=== PATIENT | male | born 1955 | race Caucasian/White ===

== ENCOUNTER 2023-04-23 10:35 | Observation (INO) ==
--- NOTE | 2023-04-05 15:01 | PAT Medication Instructions ---
Medication Instructions Date of Service April 05, 2023 Home Medications atorvastatin 10 mg tablet (Lipitor) 10 mg PO QAM duloxetine 30 mg capsule,delayed release (Cymbalta) 30 mg PO QAM insulin lispro-aabc 100 unit/mL subcutaneous solution (Lyumjev U-100 Insulin) 1 sliding scale dose subcut USEASDIRECTD lisinopril 20 mg tablet 20 mg PO QAM Medication Instructions: DO NOT take the morning of surgery lisinopril 20 mg tablet 20 mg PO QAM insulin lispro-aabc 100 unit/mL subcutaneous solution (Lyumjev U-100 Insulin) 1 sliding scale dose subcut USEASDIRECTD Take morning of surgery With a small sip of water, OTHERWISE NOTHING TO EAT OR DRINK AFTER MIDNIGHT: atorvastatin 10 mg tablet (Lipitor) 10 mg PO QAM duloxetine 30 mg capsule,delayed release (Cymbalta) 30 mg PO QAM Other Notes If you have any questions please call us at [phone] or [phone] or [phone] or [phone]
--- NOTE | 2023-04-09 13:47 | Anesthesiology Consultation ---
Date of Service April 09, 2023 Assessment & Plan (1) Encounter for pre-operative examination: - awaiting echocardiogram. - check BSG am DOS. - insulin pump instructions: It was corrected on provided medication instructions and patient instructed that he needs to contact managing provider of his insulin pump for instructions regarding surgery. He verbalized full understanding and agreement, denied questions or concerns. - 3/6 systolic murmur: echocardiogram needed prior to surgery, patient aware and agreeable. Optimization form completed to be faxed to Dr. Brady. Surgeon's office made aware. - Outpatient joint assessment: Patient is currently scheduled for inpatient pathway. If re-evaluated and patient/surgeon requests outpatient pathway, patient is/is not acceptable candidate for outpatient joint program from anesthesia standpoint pending surgeon's office assessment of pt motivation/support/completion of same day joint program preop requirements. Chart Review Chart Review: Pending: Refer to Additional Notes / Consult section and Patient seen in Pre Admission Testing Teaching & Discussion Pre-Anesthesia Teaching/Discussion Notes: Instructed NPO after midnight before surgery, except medications with 15 cc of water. Medication instructions provided according to the PAT guidelines. History Surgery Operation Date: 04/23/23 12:30 Proposed Procedures p Right Total Knee Arthroplasty - Rainer Colvin MD Height/Weight Height: 5 ft 3 in Weight: 63.6 kg Allergies Allergy/AdvReac Type Severity Reaction Status Date / Time Penicillins Allergy Mild Rash Verified 04/05/23 12:45 erythromycin base AdvReac Mild Gastrointestinal Verified 04/05/23 12:45 Upset Medications Home Medications Medication Instructions Recorded Confirmed Last Taken atorvastatin 10 mg tablet (Lipitor) 10 mg PO QAM 04/05/23 04/05/23 Unknown duloxetine 30 mg capsule,delayed 30 mg PO QAM 04/05/23 04/05/23 Unknown release (Cymbalta) insulin lispro-aabc 100 unit/mL 1 sliding scale dose subcut 04/05/23 04/05/23 Unknown subcutaneous solution (Lyumjev USEASDIRECTD U-100 Insulin) lisinopril 20 mg tablet 20 mg PO QAM 04/05/23 04/05/23 Unknown Past Medical History Medical History (Updated 04/09/23 @ 13:49 by Ria Burger PA-C) Cardiac murmur mild "slight"; follows with PCP Cataract, right eye Diabetes type 1--on insulin via pump Diabetic retinopathy History of COVID-2021--mild symptoms, no symptoms now Hyperlipidemia Hypertension controlled, stable per pt Insulin pump in place Kidney stones last episode 4-5 yrs ago Patient denies h/o stroke, seizures, heart attack, heart failure, blood clots/DVTs or blood transfusions. Exercise / Class Metabolic Activity II 4-5 Yardwork/Stairs/Walk up hill (denies chest discomfort or shortness of breath with 1 FOS) Past Family History Family History Other No family history of adverse response to anesthesia Past Surgical History Surgical History History of arthroscopy of right knee History of carpal tunnel release of both wrists History of colonoscopy History of eye surgery bilateral for diabetic retinopathy History of tooth extraction partial lower denture Status post cystoscopy with ureteral stent placement Status post trigger finger release pt states ALL fingers have had trigger finger release Past Anesthesia History No Hx of Anesthesia Complications and No Family Hx of Anesthesia Complications History of PONV No Hx of PONV and No Hx of Motion Sickness Social History Smoking Status: Never smoker Do You Dip or Chew Tobacco: No Hx Alcohol Use: No Hx Substance Use: No substance use type: does not use Review of Systems Patient denies chest pain, shortness of breath, dyspnea on exertion, snoring, witnessed apneas, reflux, fever, chills, cough, wheezing, or palpitations. Physical Exam Vital Signs Vitals BP 170/75 left arm automatic, 170/72 left arm manual (Pt notes that BP is always elevated to this degree at medical visits due to white coat HTN) P 82 TEMP 98.4 SP02 99% on RA RESP 18 Physical Patient resting comfortably in chair in no acute distress, alert and oriented, responding appropriately throughout visit Full cervical extension range of motion without pain TMD 3.5 finger breadths Mallampati Score 3 Dentition: partial lower denture and several caps/crowns; denies chipped or loose teeth, implants or bridges Lungs: normal respiratory effort. Good air movement, clear throughout to auscultation, no adventitious breath sounds Cardiac: regular rate and rhythm, 3/6 systolic murmur, no gallops or rubs Carotid arteries: negative bruit bilat Lab Results Anesthesia Preop Results Results Anesthesia Widget: WBC 7.60 K/ul (4.8-10.8) 04/09/23 Hgb 14.8 g/dl (14.0-18.0) 04/09/23 Hct 41.8 % (42.0-52.0) L 04/09/23 Plt 235 K/uL (130-400) 04/09/23 Na 138 mmol/L (136-145) 04/09/23 K 4.3 mmol/L (3.5-5.1) 04/09/23 Cl 105 mmol/L (98-107) 04/09/23 CO2 30 mmol/L (21-32) 04/09/23 BUN 25 mg/dl (6-23) H 04/09/23 Creat 0.97 mg/dl (0.6-1.4) 04/09/23 Glucose Level 146 mg/dl (70-99(Fasting)) H 04/09/23 PT 10.9 Seconds (9.0-12.0) 04/09/23 PTT 27.7 Seconds (21.0-31.0) 04/09/23 INR 1.0 (0.9-1.1) 04/09/23 HA1c 6.4 % (4.5-5.6) H 04/09/23 Blood Type O Negative 04/09/23 Antibody Screen NEGATIVE 04/09/23 Testing Electrocardiogram Date: 04/09/23 NSR, rate 73 bpm Chest X-Ray Date: 04/09/23 No acute chest disease
[~2023-04-23 10:35] MED LIST: ACETAMINOPHEN 500 MG TAB PO SCH; ALLERGY Noted to ORDERED Medication SCH; BUPIVACAINE 0.5 % 5 MG/1 ML PF 10ML VIAL ONE; BUPIVACAINE LIPOSOME/PF 266 MG, BUPIVACAINE/EPINEPHRINE 50 ML, SODIUM CHLORIDE 0.9% PF ... INFIL SCH; CeleBREX 200 MG CAP PO SCH; EPINEPHrine INJ 1 MG/ML AMP ONE; FAMOTIDINE 20 MG TAB PO SCH; LR 500ML BOLUS, THEN 15ML/HR IV SCH; LR 60ML/HR IV SCH; METOCLOPRAMIDE HCL 10 MG TABLET PO SCH; ROPIVACAINE 0.5% 5 MG/ML 30 ML VIAL ONE; Scopolamine 1 MG TDSY TD SCH; TRANEXAMIC ACID 1,000 MG **IV Intra-op IV SCH; ceFAZolin 2000MG 2,000 MG/15 ML SYR IV SCH
--- NOTE | 2023-04-23 10:43 | History & Physical Bridge Note ---
Date of Service April 23, 2023 History & Physical Bridge Note I have examined the patient, reviewed the History & Physical and in the interval since the performance of the History & Physical I have noted the following changes of clinical significance: no changes noted
[2023-04-23] MEDS ORDERED: Nursing to Pharmacy Communication SCH (11:15)
[2023-04-23] MEDS ORDERED: PROPOFOL IV EMULSION 10 MG/ML 20 ML VIAL IV ONE (11:45)
[2023-04-23] MEDS ORDERED: ONDANSETRON INJ 2 MG/ML 2 ML VIAL ONE (11:45)
[2023-04-23] MEDS ORDERED: LIDOCAINE 2% 2 ML VIAL/AMP(20MG/ML) INFIL ONE (11:45)
[2023-04-23] MEDS ORDERED: MIDAZOLAM HCL 1 MG/ML 2ML VIAL ONE (11:46)
[2023-04-23] MEDS ORDERED: BUPIVACAINE LIPOSOME 1.3% 266 MG/20 ML VIAL ONE (13:07)
[2023-04-23] MEDS ORDERED: BUPIVACAINE/EPINEPHRINE 0.25% 1:200,000 30 ML VIAL ONE (13:07)
[2023-04-23] MEDS ORDERED: SODIUM CHLORIDE 0.9% PF 50 ML VIAL ONE (13:07)
[2023-04-23] MEDS ORDERED: ePHEDrine sulfate 50 MG/ML AMP IV PRN (13:28)
[2023-04-23] MEDS ORDERED: ATROPINE SULFATE 0.1 MG/ML 10ML SYR IV PRN (13:28)
[2023-04-23] MEDS ORDERED: KETOROLAC 30 MG/ML VIAL ONE (14:33)
--- NOTE | 2023-04-23 15:23 | Operative Report ---
PG Post Operative Report Pre & Post Diagnosis Operation Date: 04/23/23 12:30 Pre-Op Diagnosis: Right Knee Advanced Degenerative Joint Disease Post-Op Diagnosis: Right Knee Advanced Degenerative Joint Disease I identified the patient and participated in the time-out.: Yes Procedure Operation Date: 04/23/23 12:30 Actual Procedures p Right Total Knee Arthroplasty(Right) - Rainer Colvin MD Surgeon Rainer Colvin MD Rn Concurrent Review Rolando Goldberg PA-C Estimated Blood Loss 50 Findings Consistent with Post-Op Diagnosis Operative findings reveal advanced right knee DJD. Had extensive grade 4 [id number] disease of the medial compartment. A fixed varus deformity to his knee. About a 10 to 15 degree flexion contracture. Specimens Right knee sent for pathology. Anesthesia Type Spinal MAC Complications none Disposition Accompanied Patient To Recovery: No Indications Patient 67-year-old diabetic gentleman whose had a long history of bilateral knee pain and discomfort is gotten worse over the past several years. Been through extensive conservative treatments became less successful over time. X- rays showed advanced bilateral knee arthritis. He elected proceed with right total knee arthroplasty. Description of Procedure Operative implants consist of: 1. Biomet Vanguard size 62.5 right posterior stabilized femoral component. 2. Biomet size 71 tibial tray. 3. 10 mm post stabilized polyethylene insert. 4. 28 x 8 all poly patella. The patient was taken to the operating, identified, placed on the operating table supine position. All contractors were properly padded. IV antibiotics tried by anesthesia team. A spinal anesthetic and abductor canal block had provided in the holding area. Right thigh tent was then placed. The right lower extremities then prepped and draped in usual sterile fashion. The right leg was elevated and exsanguinated with use of an Esmarch in terms playset 300 mmHg. An anterior approach to the right knee was then performed to longitudinal incision centered over the patella. Sharp dissection was carried through subcutaneous tissue down the extensor mechanism. A medial parapatellar arthrotomy incision was made. Of note, his quad tendon was extremely short which required some extension into the VMO musculature. Some subperiosteal dissection was carried out medially. The fat pad was dissected from Neath patella tendon. The lateral patellofemoral ligament was released. Patella was subluxated laterally. The knee was flexed. The osteophytes taken off the distal femur. The ACL and PCL were then released from distal femur the tibia subluxated anteriorly. The external tibial alignment jig was then placed in the interface the tibia and adjusted 14 mm medially. Proximal tibial cut was made essentially flush with the most deficient aspect of the posterior and medial tibial plateau. Some osteophytes taken off medial and posterior medially. The tibia sized to a size 71. Attention drawn the femur. The distal femur was entered with a sharp drill. Intramedullary canal was suction. A right 6 degree valgus cutting guide was placed. Distal femoral cutting block was pinned in place. Distal femoral cut was made to take an additional 3 mm of bone off distal femur. The femur was then sized to a size 62.5. The AP cutting block was pinned parallel to the epicondylar axis which was 4 degrees of external rotation. Anterior cut, anterior chamfer, posterior cut, posterior chamfer cuts were made. The box cutting guide was placed in just slight lateral and the box cut was made. The knee was flexed. The remnants of the medial and lateral menisci were excised. The osteophytes taken off the posterior aspect the femur. A trial femoral component was placed. The tibial tray was pinned in maximum external rotation and the drill and stem punch used to create defect in proximal tibia for the tibial tray. Knee was then trialed and 10 mm insert fit most appropriately. Attention drawn the patella. The patella was cleaned of all soft tissue. Patella thickness measured 22 mm in thickness was cut down to 13. Was sized to a size 28 patella. The lug holes were drilled for the 28 patella. The lateral osteophytes removed. Patella button was placed. Knee was taken through range of motion patella tracked nicely with no thumbs test. Attention drawn to placing permanent components. Nupathe all trial components were removed. Bone plug was placed in the distal femur limit blood loss. Double batch Palacos G cement was mixed. Biomet Vanguard size 62.5 right posterior stabilized femoral component, size 71 tibial tray, 10 mm posterior stabilized polyethylene insert, and a 28 x 8 all poly patella then cemented in place. Knee was brought out in full extension till cement hardened. Final cement check was then performed. The pericapsular tissues were injected with total of 100 cc of combination of 20 cc of Exparel, 30 cc normal saline, 50 cc of quarter percent Marcaine with epinephrine. Patient did receive 1 g tranexamic acid. The tourniquet was let down for final tourniquet time 60 minutes. Hemostasis assured with electrocautery. The wounds once again irrigated. The extensor mechanism was then closed with combination 1 PDS suture and 1 Vicryl suture in [id number] fashion. Extensor mechanism checked found to be intact with subcutaneous tissues then closed with 2 Dexon suture in buried interrupted fashion skin was closed skin brenton. Leg was then cleaned and dried and sterile dressing with Xeroform, 4 fours, sterile cast padding, Armin bandage were applied. Patient then transferred to the recovery room in stable condition. Patient tolerated the procedure well and there were no complications. Rolando Goldberg, my physician team assistant, was present for the entire procedure. His assistance was essential and required for appropriate patient positioning, prepping and draping, surgical exposure, performing the technical details of the operation, placement the implants, closure of the wound, and placement of the sterile bandage. I attest to the content of the Intraoperative Record and any orders documented therein. Any exceptions are noted below.
--- NOTE | 2023-04-23 16:06 | Anesthesiology Progress Note ---
Date of Service April 23, 2023 Anesthesia Post Procedure Vital Signs Vital Signs: Temp Pulse Pulse Resp BP Pulse Ox O2 Del Method 04/23/23 15:55 98.1 F 67 20 162/65 H 94 Room Air 04/23/23 15:45 68 16 123/71 96 Room Air 04/23/23 15:35 65 20 135/68 98 Room Air 04/23/23 15:25 70 16 133/69 98 Room Air 04/23/23 15:15 98.8 F 75 16 139/59 L 97 Room Air 04/23/23 11:07 98.2 F 78 20 203/87 H 98 Room Air Transfer of Care Handoff Completed per policy Notes Mental Status: alert / awake / arousable and participated in evaluation Patient Amnestic to Procedure: Yes Nausea / Vomiting: adequately controlled Pain: adequately controlled Airway Patency, RR, SpO2: stable & adequate BP & HR: stable & adequate Hydration State: stable & adequate Neuraxial Anesthesia: was administered and sensory block is resolving Anesthetic Complications: no major complications apparent and Pt Satisfied with anesthetic care
--- NOTE | 2023-04-23 16:15 | XRay Report ---
TWO VIEWS RIGHT KNEE CLINICAL HISTORY: Postoperative examination. FINDINGS: AP and crosstable lateral portable views of the right knee are obtained. A right knee arthr oplasty is in near anatomic alignment. There has been undersurface remodeling of the patella. No acut e fracture is seen. There are expected postoperative changes around the knee including skin clips, so ft tissue edema, and subcutaneous gas. IMPRESSION: Expected postoperative changes status post right knee arthroplasty. No acute fracture is seen. ACT 112: Negative or not required by law. Electronically signed by: Nicanor Lacy M.D. 04/23/2023 4:14 PM
[2023-04-23] MEDS ORDERED: PHARMACY GLYCEMIC MGMT CONSULT PRN (16:49)
[2023-04-23] MEDS ORDERED: NALOXONE HCL 0.4 MG/1 ML VIAL/CARP IV PRN (16:49)
[2023-04-23] MEDS ORDERED: diphenhydrAMINE Capsule 25 MG CAP PO PRN (16:49)
[2023-04-23] MEDS ORDERED: ALUMINUM/MAGNESIUM SUSP 30 ML UDC PO PRN (16:49)
[2023-04-23] MEDS ORDERED: METOCLOPRAMIDE HCL INJ 5 MG/ML 2 ML VIAL IV PRN (16:49)
[2023-04-23] MEDS ORDERED: bisacodyL 10 MG SUPP PR PRN (16:49)
[2023-04-23] MEDS ORDERED: MAGNESIUM HYDROXIDE SUSP 30 ML UDC PO PRN (16:49)
[2023-04-23] MEDS ORDERED: [UNRECOGNIZED DRUG - OTHER] SQ SCH (16:49)
[2023-04-23] MEDS ORDERED: ONDANSETRON INJ 2 MG/ML 2 ML VIAL IV PRN (16:49)
[2023-04-23] MEDS ORDERED: HYDROmorphone INJ 0.5 MG/0.5 ML SYR IV PRN (16:49)
[2023-04-23] MEDS ORDERED: TAMSULOSIN HCL 0.4 MG CAP PO PRN (16:49)
[2023-04-23] MEDS: SODIUM CHLORIDE 0.9% 1,000 ML IV SCH (17:44)
[2023-04-23] MEDS: Scopolamine CHECK PATCH PLACEMENT SCH ×2 (17:44→23:55)
[2023-04-23] MEDS: KETOROLAC 30 MG/ML VIAL IV SCH ×2 (17:45→22:50)
[2023-04-23] MEDS: ASCORBIC ACID 500 MG TAB PO SCH (18:17)
[2023-04-23] MEDS: oxyCODONE HCL IR 5 MG TAB (IMMEDIATE RELEASE) PO PRN (20:23)
[2023-04-23] MEDS: ACETAMINOPHEN 500 MG TAB PO SCH (20:24)
[2023-04-23] MEDS: ASPIRIN 81 MG ECTAB PO SCH (20:26)
[2023-04-23] MEDS: DOCUSATE SODIUM 100 MG CAP PO SCH (20:28)
[2023-04-23] MEDS ORDERED: SENNA 8.6 MG TAB PO SCH ×2 (21:00)
--- NOTE | 2023-04-23 21:07 | Hospitalist Consultation ---
Date of Consultation April 23, 2023 Assessment & Plan (1) Syncope: 67 yo male s/p R TKA post op day 0. #Syncopal event #Nausea -Patient is s/p R TKA post op day 0. Had syncopal event this evening as bella catrina was called. See HPI for details. Suspect vasovagal 2/2 nausea. This occurred shortly after Ancef administration however he had this prior to surgery without complications. NSR on bedside case preparer and liner. Labs unremarkable. Was hypertensive with systolic BP 200 following episode however this self resolved moments later. Bradycardic which appears to be his baseline. O2 sat wnl. Pt quickly improving to near baseline. -cont. maintenance IVF -zofran and reglan administered following event for persistent nausea. Continue prn. -pt hesitant to have final dose of Ancef given circumstances. Will hold for now. Defer to surgery for further prophylactic abx. -upgrade to [facility] #HTN -cont. lisinopril #DM1 -cont. insulin pump -cont. cymbalta for ?neuropathy #HLD -cont. statin DVT ppx: ASA, SCDs FEN/GI: DM1 Code Status: Full Dispo: [facility] team will continue to follow. (2) Degenerative arthritis of knee, bilateral: (3) Total knee replacement status: (4) Hyperlipidemia: (5) Hypertension: (6) Diabetes: Supervising Physician Co-Signing Physician Notes Patient seen and examined, chart reviewed, case discussed with Dr. Wilson and I agree with the assessment and plan as above. POD O from right TKA with syncopal event. Suspect vasovagal event. H/H is acceptable as is BMP, renal function, electrolytes Patient feels well with no complaints Plan as above History of Present Illness Reason for Consultation: syncopal episode Attending Physician: Rainer Colvin MD History of Present Illness 67 yo male s/p R TKA post op day 0. Bella fritz was called around 8:30 PM for a syncopal event. Patient was apparently just laying in his bed and passed out for about 20 to 30 seconds before coming back to. Nurse states this occurred shortly after administering Ancef. Upon entering room patient was Ill-appearing but slowly improving. Blood pressure was elevated into the 200s systolically but quickly to his baseline around the 150s. HR in the 50s which appears to be his baseline. Vitals otherwise were within normal limits. He stated that prior to the event he did feel as if he was going to pass out. This is never happened to him before. He does endorse persistent fatigue and nausea with some vomiting however denies headache, chest pain, shortness of breath, abdominal pain, fevers, chills. His right leg is bandaged but he is able to feel his toes and able to get up on command. Denies significant heart history. He was hooked up to a monitor and appeared to be in normal sinus rhythm. He is continued on maintenance fluids and was given a dose of Zofran and Reglan following this episode. Allergies Allergy/AdvReac Type Severity Reaction Status Date / Time Penicillins Allergy Mild Rash Verified 04/23/23 11:20 erythromycin base AdvReac Mild Gastrointestinal Verified 04/23/23 11:20 Upset Home Medications Medication Instructions Recorded Confirmed Type atorvastatin 10 mg tablet (Lipitor) 10 mg PO QAM 04/05/23 04/23/23 History duloxetine 30 mg capsule,delayed 30 mg PO QAM 04/05/23 04/23/23 History release (Cymbalta) insulin lispro-aabc 100 unit/mL 1 sliding scale dose subcut 04/05/23 04/23/23 History subcutaneous solution (Lyumjev USEASDIRECTD U-100 Insulin) lisinopril 20 mg tablet 20 mg PO QAM 04/05/23 04/23/23 History acetaminophen 500 mg tablet 1,000 mg PO TID pain 30 days #180 04/21/23 04/23/23 Rx (Tylenol Extra Strength) tabs aspirin 81 mg tablet,delayed 81 mg PO BID 45 days #90 tabs 04/21/23 04/23/23 Rx release (Angélica Low Dose Aspirin) cefadroxil 500 mg capsule 500 mg PO BID 7 days #14 caps 04/21/23 04/23/23 Rx ketorolac 10 mg tablet 10 mg PO Q6 pain 5 days #20 tabs 04/21/23 04/23/23 Rx ondansetron 4 mg disintegrating 4 mg PO Q8 PRN nausea #20 tabs 04/21/23 04/23/23 Rx tablet oxycodone 5 mg tablet 5 - 10 mg PO Q6 PRN pain #40 tabs 04/21/23 04/23/23 Rx sennosides 8.6 mg tablet (Senokot) 8.6 mg PO BID prevent constipation 04/21/23 04/23/23 Rx 14 days #28 tabs Patient History Medical History Cardiac murmur mild "slight"; follows with PCP Cataract, right eye Diabetes type 1--on insulin via pump Diabetic retinopathy History of COVID-2021--mild symptoms, no symptoms now Hyperlipidemia Hypertension controlled, stable per pt Insulin pump in place Kidney stones last episode 4-5 yrs ago Surgical History History of arthroscopy of right knee History of carpal tunnel release of both wrists History of colonoscopy History of eye surgery bilateral for diabetic retinopathy History of tooth extraction partial lower denture Status post cystoscopy with ureteral stent placement Status post trigger finger release pt states ALL fingers have had trigger finger release Family History Other No family history of adverse response to anesthesia Social History Smoking Status: Never smoker Second Hand Exposure: No; Do You Dip or Chew Tobacco: No; Tobacco Cessation Education Requested by Patient: No Hx Alcohol Use: No Hx Substance Use: No Preferred Language: Taiwanese Communication Ability: Effective School Age Teacher Required: No Beliefs That Will Affect Care: None Current Living Situation: Alone Other Information That Helps Us Care for You: No Feels Safe at Home: Yes Safety Concerns: Feels Safe At This Time Assistive Devices: Denture - Lower Review of Systems Review of Systems: All systems reviewed & are unremarkable except as noted in HPI & below Physical Exam Physical Exam: Constitutional: in no acute distress, pleasant and normal affect, intact memory. AOx3. Vitals as above. HEENT: No scleral injection or discharge.Moist mucous membranes. Neck: Supple without lymphadenopathy or thyromegaly. Trachea midline. Lungs: Clear to auscultation bilaterally with good effort. No wheezes/rales/rhonchi. Cardiac: Regular rate and rhythm. No murmurs.2+ distal peripheral pulses. L leg with SCD, R leg with nando wrap. Abdomen: Bowel sounds present. Soft, nontender, and nondistended.No guarding. MSK: No cyanosis or clubbing. Skin: No rashes, warm, dry. Neurologic: Grossly intact cranial nerves. Able to wiggle toes upon command. Normal sensation of extremities bilaterally. PERRL. Results & Data Results & Data Vital Signs (Past 12 Hours) Vital Signs Temp Pulse Pulse Resp BP Pulse Ox O2 Del Method 04/23/23 19:03 37.0 C 51 L 18 185/73 H 97 Room Air 04/23/23 17:48 36.6 C 55 L 16 162/78 H 98 Room Air 04/23/23 17:08 36.9 C 62 18 134/68 96 Room Air 04/23/23 16:35 36.9 C 65 16 157/69 H 95 Room Air 04/23/23 16:00 65 18 157/67 H 97 Room Air 04/23/23 16:15 65 16 154/63 H 97 Room Air 04/23/23 15:55 36.7 C 67 20 162/65 H 94 Room Air 04/23/23 15:45 68 16 123/71 96 Room Air 04/23/23 15:35 65 20 135/68 98 Room Air 04/23/23 15:25 70 16 133/69 98 Room Air 04/23/23 15:15 37.1 C 75 16 139/59 L 97 Room Air 04/23/23 11:07 36.8 C 78 20 203/87 H 98 Room Air Laboratory Results Laboratory Results POC Glucose 120 mg/dl (70-99) H 04/23/23 20:37 Impressions Knee X-Ray 04/23/23 15:14 TWO VIEWS RIGHT KNEE CLINICAL HISTORY: Postoperative examination. FINDINGS: AP and crosstable lateral portable views of the right knee are obtained. A right knee arthroplasty is in near anatomic alignment. There has been undersurface remodeling of the patella. No acute fracture is seen. There are expected postoperative changes around the knee including skin clips, soft tissue edema, and subcutaneous gas. IMPRESSION: Expected postoperative changes status post right knee arthroplasty. No acute fracture is seen. ACT 112: Negative or not required by law. Electronically signed by: Nicanor Lacy M.D. 04/23/2023 4:14 PM Resident Activity Tracking Resident Involvement: Resident Care Provided Care Provided: [facility]
[2023-04-23] MEDS ORDERED: ceFAZolin 1000MG 1,000 MG/7.5 ML SYR IV SCH (21:30)
[2023-04-23] MEDS ORDERED: TRANEXAMIC ACID / 0.7% NACL 1,000 MG/100 ML BAG IV SCH (21:30)
[2023-04-23 21:50] LABS: Eosinophils # (auto) 0.11 K/uL (0.00-0.50); Eosinophils % (auto) 1.1 %; Hematocrit (blood only) 36.2 % (42.0-52.0); Immature Granulocytes # (auto) 0.02 K/uL (0.01-0.20); Immature Granulocytes % (auto) 0.2 %; Lymphocytes # (auto) 1.16 K/uL (1.20-3.40); Lymphocytes % (auto) 11.4 %; Mean Corpuscular Hemoglobin 32.3 pg (25.0-34.0); Mean Corpuscular Hgb Conc 35.9 g/dL (32.0-36.0); Mean Platelet Volume 10.1 fL (9.4-12.4); Monocytes # (auto) 0.93 K/uL (0.11-0.59); Monocytes % (auto) 9.1 %; Neutrophils % (auto) 77.2 %; Platelet Count 178 K/uL (130-400); RDW Coefficient of Variation 12.5 % (11.5-14.5); RDW Standard Deviation 41.1 fL (36.4-46.3); Red Blood Count 4.02 M/uL (4.70-6.10); White Blood Count 10.22 K/ul (4.8-10.8)
[2023-04-23 22:03] LABS: BUN Creatinine Ratio 20.2 (10-20); Calcium 8.1 mg/dl (8.6-10.3); Est GFR (African American) 86.9 ml/min; Magnesium 1.7 mg/dl (1.7-2.4); Potassium 3.9 mmol/L (3.5-5.1)
[2023-04-24] MEDS ORDERED: GLUCAGON FOR INJ 1 MG VIAL IM PRN (00:45)
[2023-04-24] MEDS ORDERED: INSULIN ASPART 100 UNITS/ML VIAL SC PRN ×2 (00:45→12:49)
[2023-04-24] MEDS ORDERED: CARBOHYDRATES FOR HYPOGLYCEMIA PO PRN (00:45)
[2023-04-24] MEDS ORDERED: GLUCOSE 40% GEL 15 GM TUBE PO PRN (00:45)
[2023-04-24] MEDS ORDERED: DEXTROSE 50% 50 ML SYRINGE IV PRN (00:45)
[2023-04-24] MEDS ORDERED: GLUCOSE 10 TAB/TUBE PO PRN (00:45)
--- NOTE | 2023-04-24 03:51 | Billing Data ---
Date of Service April 24, 2023 Coding Level of Care Code 20156 IN/OBS CONSULT LVL 3,45M
[2023-04-24] MEDS: SODIUM CHLORIDE 0.9% 1,000 ML IV SCH (04:57)
[2023-04-24] MEDS: KETOROLAC 30 MG/ML VIAL IV SCH ×2 (05:13→10:32)
[2023-04-24 06:52] LABS: Hematocrit (blood only) 34.2 % (42.0-52.0); Hemoglobin 12.3 g/dl (14.0-18.0); Mean Corpuscular Hemoglobin 32.5 pg (25.0-34.0); Mean Corpuscular Volume 90.2 fL (80.0-100.0); Mean Platelet Volume 10.7 fL (9.4-12.4); Platelet Count 192 K/uL (130-400); RDW Coefficient of Variation 12.6 % (11.5-14.5); RDW Standard Deviation 41.5 fL (36.4-46.3); Red Blood Count 3.79 M/uL (4.70-6.10)
[2023-04-24 07:01] LABS: BUN Creatinine Ratio 24.4 (10-20); Calcium 7.9 mg/dl (8.6-10.3); Creatinine Clr Calc Pharmacy 65.9 ml/min; Est GFR (African American) 103.5 ml/min; Est GFR (Non-African American) 89.3 ml/min; Potassium 4.2 mmol/L (3.5-5.1)
[2023-04-24] MEDS ORDERED: dexAMETHasone 10 MG in SYRINGE 0 ML IV SCH (08:00)
[2023-04-24] MEDS ORDERED: MAGNESIUM SULFATE / D5W 1 GM/100 ML BAG IV ONE (08:01)
--- NOTE | 2023-04-24 08:04 | Hospitalist Progress Note ---
Date of Service April 24, 2023 Assessment & Plan (1) Syncope: Plan: #Syncopal event #Nausea -Patient is s/p R TKA post op day 0. Had syncopal event this evening as code catrina was called. See HPI for details. Suspect vasovagal 2/2 nausea. This occurred shortly after Ancef administration however he had this prior to surgery without complications. NSR on bedside service desk lead. Labs unremarkable. Was hypertensive with systolic BP 200 following episode however this self resolved moments later. Bradycardic which appears to be his baseline. O2 sat wnl. Pt quickly improving to near baseline. -cont. maintenance IVF -zofran and reglan administered following event for persistent nausea. Continue prn. -pt hesitant to have final dose of Ancef given circumstances. Will hold for now. Defer to surgery for further prophylactic abx. -upgrade to eBrevia mag 1.7 on lab check. 04/24 POD#2 s/p RIGHT TKA with Dr Colvin NSR/Sinus papi on telemetry -Noting 7 beat run vtach overnight around 503am, however was getting blood work done at that time per nursing, but SR/SB otherwise on monitor. No pauses. Mag 1.7, 1gm IV provided PVR as well, ?micturition syncope. Denies any urinary symptoms/frequency/burning/discoloration Cardiology consulted, but discussed w/ Dr Perry and felt likely vasovagal syncope and no need for consultation given patient denied CP/SOB/palpitations. -Of note, did have echo prior to surgery, no significant valvular dysfunction, normal EF EKG pre-op NSR, 73bpm. Can repeat, trop added to am labs (will check back) NSR/sinus papi otherwise on monitor ?issues w/ confusion this morning 2nd to steroid use vs pain medication. Answering questions appropriately for myself, nonfocal on exam. Discussed w daughter can monitor through this morning but if no worsening confusion consider dc to home/familiar environment may be best per Dr Colvin/discussion- relayed to daughter, updated case management as well. Hooked back up to own insulin pump, to monitor but alert of any significant elevations at discharge Therapy w/ some concerns at dc, discussed w/ Dr colvin, daughter reports planning to stay with patient at discharge. Defer dispo to primary service. #HTN BP stable 131/64 Lisinopril continued #DM1 -cont. insulin pump -cont. cymbalta for ?neuropathy BSG elevations to 200s, suspected 2nd to steroid use. Utilizing home pump, hooked back up w/ resevoir by patient this morning. Family rec to monitor/alert of any significant elevations. Will not be going home on steroids #HLD -cont. statin (2) Degenerative arthritis of knee, bilateral: (3) Total knee replacement status: (4) Hyperlipidemia: (5) Hypertension: (6) Diabetes: Plan Thank you for allowing hospitalist group to participate in the care of Mr Mike. If BSGs stable/no worsening confusion, trop w/o significant elevation, and acceptable for patient discharge home with family support given concerns by therapy evaluations, hospitalist will sign off. Please call with any questions/concerns. Admission and Anticipated Discharge Date Admission Date: April 23, 2023 Subjective eval this morning, doing alright but having some increased pain. discussed oxycodone, he would like to avoid but having significant pain and ok with taking a dose. reports was on flomax in the past but didn't agree with him and felt like it made him sterile/issues with getting erection. had episode of syncope sitting at side of bed after Ancef, immediately following. Got some steroids this morning which also made him feel funny. Will have nursing check orthostatics, post-void residual. On monitor has been sinus papi/sinus rhythm. Did have brief episode of Vtach this morning around 503am, but was at time of getting labs drawn. ECHO pre-op with normal EF/no significant valvular disease. He denies any palpitations/chest pain/shortness of breath, lightheadedness at this time but discussed uncontrolled pain can contribute to syncope as well as possibly micturition syncope. Has insulin pump, check 180s with POC, but he is managing his pump but was unaware of what he ate this morning for breakfast per nursing. Will consult pharmacy for assistance if having continued issues. Dispo per primary if no further issues. Physical Exam Physical Exam: General: WD/WN male sitting up in bed, complaints of pain to his right knee, mild distress, asked nursing to administer pain medication HEENT: head normocephalic, atraumatic, pupils equal/reactive to light, mmm, trachea midline Resp: CTA, no w/c/r, on room air 97% CV: RRR, no significant m/r/g, no pitting edema/calf tenderness GI: +BS, soft/NT, insulin pump in place : no [place] MSK/Neuro: no focal deficits, no slurred speech, answering questions appropriately dressing/nando wrap to RIGHT knee c/d/i, compartments soft, calves nontender, pulses palpable, tenderness to palpation around knee, strength with dorsiflexion/plantar flexion intact Psych: alert to person/place/time/events/dates Results & Data Results & Data Vital Signs (Past 12 Hours) Vital Signs Temp Pulse Pulse Resp BP Pulse Ox O2 Del Method 04/24/23 07:23 65 04/24/23 04:14 36.5 C 52 L 18 140/52 L 98 Room Air 04/23/23 23:05 48 L 04/23/23 23:27 36.4 C L 50 L 18 142/66 H 97 Room Air 04/23/23 20:44 36.8 C 47 L 14 130/72 95 Room Air 04/23/23 22:32 36.6 C 50 L 16 132/61 96 Room Air 04/23/23 20:26 Room Air Laboratory Results 04/24/23 04/24/23 04/24/23 Range/Units 12:32 08:19 05:01 WBC (4.8-10.8) K/ul RBC (4.70-6.10) M/uL Hgb (14.0-18.0) g/dl Hct (42.0-52.0) % MCV (80.0-100.0) fL MCH (25.0-34.0) pg MCHC (32.0-36.0) g/dL RDW Std Deviation (36.4-46.3) fL RDW Coeff of [place] (11.5-14.5) % Plt Count (130-400) K/uL MPV (9.4-12.4) fL Immature Gran % (Auto) % Neut % (Auto) % Lymph % (Auto) % [place] % (Auto) % Eos % (Auto) % Baso % (Auto) % Neut # (Auto) (1.40-6.50) K/uL Lymph # (Auto) (1.20-3.40) K/uL [place] # (Auto) (0.11-0.59) K/uL Eos # (Auto) (0.00-0.50) K/uL Baso # (Auto) (0.00-0.20) K/uL Immature Gran # (Auto) (0.01-0.20) K/uL Sodium 136 (136-145) mmol/L Potassium 4.2 (3.5-5.1) mmol/L Chloride 104 (98-107) mmol/L Carbon Dioxide 29 (21-32) mmol/L Anion Gap 3 (3-11) BUN 22 (6-23) mg/dl Creatinine 0.90 (0.6-1.4) mg/dl Est Cr Clr Drug Dosing 65.9 ml/min Est GFR ( Amer) 103.5 ml/min Est GFR (Non-Af Amer) 89.3 ml/min BUN/Creatinine Ratio 24.4 H (10-20) Glucose 109 H (70-99(Fasting)) mg/dl POC Glucose 200 H 185 H (70-99) mg/dl Calcium 7.9 L (8.6-10.3) mg/dl Magnesium 1.7 (1.7-2.4) mg/dl 04/24/23 04/23/23 04/23/23 Range/Units 05:01 21:25 21:25 WBC 8.20 10.22 (4.8-10.8) K/ul RBC 3.79 L 4.02 L (4.70-6.10) M/uL Hgb 12.3 L 13.0 L (14.0-18.0) g/dl Hct 34.2 L 36.2 L (42.0-52.0) % MCV 90.2 90.0 (80.0-100.0) fL MCH 32.5 32.3 (25.0-34.0) pg MCHC 36.0 35.9 (32.0-36.0) g/dL RDW Std Deviation 41.5 41.1 (36.4-46.3) fL RDW Coeff of [place] 12.6 12.5 (11.5-14.5) % Plt Count 192 178 (130-400) K/uL MPV 10.7 10.1 (9.4-12.4) fL Immature Gran % (Auto) 0.2 % Neut % (Auto) 77.2 % Lymph % (Auto) 11.4 % [place] % (Auto) 9.1 % Eos % (Auto) 1.1 % Baso % (Auto) 1.0 % Neut # (Auto) 7.90 H (1.40-6.50) K/uL Lymph # (Auto) 1.16 L (1.20-3.40) K/uL [place] # (Auto) 0.93 H (0.11-0.59) K/uL Eos # (Auto) 0.11 (0.00-0.50) K/uL Baso # (Auto) 0.10 (0.00-0.20) K/uL Immature Gran # (Auto) 0.02 (0.01-0.20) K/uL Sodium 136 (136-145) mmol/L Potassium 3.9 (3.5-5.1) mmol/L Chloride 107 (98-107) mmol/L Carbon Dioxide 27 (21-32) mmol/L Anion Gap 2 L (3-11) BUN 21 (6-23) mg/dl Creatinine 1.04 (0.6-1.4) mg/dl Est Cr Clr Drug Dosing 57.0 ml/min Est GFR ( Amer) 86.9 ml/min Est GFR (Non-Af Amer) 75.0 ml/min BUN/Creatinine Ratio 20.2 H (10-20) Glucose 138 H (70-99(Fasting)) mg/dl POC Glucose (70-99) mg/dl Calcium 8.1 L (8.6-10.3) mg/dl Magnesium 1.7 (1.7-2.4) mg/dl 04/23/23 04/23/23 04/23/23 Range/Units 20:37 17:04 15:19 WBC (4.8-10.8) K/ul RBC (4.70-6.10) M/uL Hgb (14.0-18.0) g/dl Hct (42.0-52.0) % MCV (80.0-100.0) fL MCH (25.0-34.0) pg MCHC (32.0-36.0) g/dL RDW Std Deviation (36.4-46.3) fL RDW Coeff of [place] (11.5-14.5) % Plt Count (130-400) K/uL MPV (9.4-12.4) fL Immature Gran % (Auto) % Neut % (Auto) % Lymph % (Auto) % [place] % (Auto) % Eos % (Auto) % Baso % (Auto) % Neut # (Auto) (1.40-6.50) K/uL Lymph # (Auto) (1.20-3.40) K/uL [place] # (Auto) (0.11-0.59) K/uL Eos # (Auto) (0.00-0.50) K/uL Baso # (Auto) (0.00-0.20) K/uL Immature Gran # (Auto) (0.01-0.20) K/uL Sodium (136-145) mmol/L Potassium (3.5-5.1) mmol/L Chloride (98-107) mmol/L Carbon Dioxide (21-32) mmol/L Anion Gap (3-11) BUN (6-23) mg/dl Creatinine (0.6-1.4) mg/dl Est Cr Clr Drug Dosing ml/min Est GFR ( Amer) ml/min Est GFR (Non-Af Amer) ml/min BUN/Creatinine Ratio (10-20) Glucose (70-99(Fasting)) mg/dl POC Glucose 120 H 131 H 108 H (70-99) mg/dl Calcium (8.6-10.3) mg/dl Magnesium (1.7-2.4) mg/dl PG Care Time/CCT Total # of Minutes Spent Total Time Spent with Patient: Total time spent is greater than 50% in coordination of care (as documented) at patient's floor/unit and/or counseling patient: Coding Level of Care Code 99283 SUB INP/OBS CARE 2/35MIN Diagnoses Syncope R55 Degenerative arthritis of knee, bilateral M17.0 Total knee replacement status Z96.659 Hyperlipidemia E78.5 Hypertension I10 Diabetes E11.9
--- NOTE | 2023-04-24 08:14 | Surgery Progress Note ---
Date of Service April 24, 2023 Assessment & Plan (1) Total knee replacement status: Plan: 67-year-old gentleman long-term diabetic postop day 1 from a right knee replacement. Apparently had a syncopal episode last evening. His vital signs look fine. Hemoglobin hematocrit are stable. Got no residual symptoms. I do not believe this had anything to do with his antibiotic administration. Plan: 1. DVT prophylaxis including thigh-high teds SCDs and aspirin twice a day. 2. PT OT. Weight-bear as tolerated right total knee protocol 3. Pain control doing okay with current pain regimen. 4. Disposition plan to discharge to home. Will have a social work faculty member discussed with him home health. We will see how he does in therapy if he does okay I think it is okay for him to go home later today as long as okay with medicine. (2) Syncope: (3) Diabetes: (4) Hypertension: Admission and Anticipated Discharge Date Admission Date: April 23, 2023 Subjective 67-year-old gentleman postop day 1 from right knee replacement. He had a syncopal episode likely vasovagal last evening shortly after getting his antibiotics. He is doing much better this morning. Feels well. No chest pain or shortness of breath. Not feeling dizzy or lightheaded. Pains controlled. Physical Exam Physical Exam: Physical examination was a pleasant middle-age male. Sitting up in his bed reading a book and looks comfortable. Examination of the right knee and leg reveals the leg to be well aligned. Dressing is clean dry and intact. He can do a straight leg raise. Can dorsiflex and plantarflex his foot appropriately. He is neurologically intact. Respiratory: normal respiratory effort, lungs clear to auscultation Cardiovascular: RRR, no murmur, no edema Gastrointestinal (Abdomen): normal bowel sounds, soft, nontender, no hepatosplenomegaly Results & Data Vital Signs (Past 12 Hours) Vital Signs Temp Pulse Pulse Resp BP Pulse Ox O2 Del Method 04/24/23 07:23 65 04/24/23 04:14 36.5 C 52 L 18 140/52 L 98 Room Air 04/23/23 23:05 48 L 04/23/23 23:27 36.4 C L 50 L 18 142/66 H 97 Room Air 04/23/23 20:44 36.8 C 47 L 14 130/72 95 Room Air 04/23/23 22:32 36.6 C 50 L 16 132/61 96 Room Air 04/23/23 20:26 Room Air Laboratory Results Hemoglobin is 12.3. Hematocrit 34.2 electrolytes are stable. PG Care Time/CCT Total # of Minutes Spent Total Time Spent with Patient: Total time spent is greater than 50% in coordination of care (as documented) at patient's floor/unit and/or counseling patient: Coding Level of Care Code 74385 Post Operative Follow-Up Diagnoses Total knee replacement status Z96.659 Syncope R55 Diabetes E11.9 Hypertension I10
[2023-04-24 08:22] LABS: Magnesium 1.7 mg/dl (1.7-2.4)
[2023-04-24] MEDS: ASPIRIN 81 MG ECTAB PO SCH (08:44)
[2023-04-24] MEDS: ACETAMINOPHEN 500 MG TAB PO SCH ×2 (08:44→14:44)
[2023-04-24] MEDS: ASCORBIC ACID 500 MG TAB PO SCH (08:50)
[2023-04-24] MEDS: Scopolamine CHECK PATCH PLACEMENT SCH (08:50)
[2023-04-24] MEDS: DOCUSATE SODIUM 100 MG CAP PO SCH (08:51)
[2023-04-24] MEDS ORDERED: lisinopril 20 MG TAB PO SCH (09:00)
[2023-04-24] MEDS ORDERED: MULTIVITAMIN TAB PO SCH (09:00)
[2023-04-24] MEDS ORDERED: ATORVASTATIN 10 MG TAB PO SCH (09:00)
[2023-04-24] MEDS ORDERED: DULoxetine HCL 30 MG CAP PO SCH (09:00)
[2023-04-24] MEDS: INSULIN, Rapid-Acting PUMP SCH ×2 (09:32→13:12)
[2023-04-24] MEDS ORDERED: PHARMACY GLYCEMIC MGMT CONSULT PRN ×2 (09:37→12:14)
[2023-04-24] MEDS: oxyCODONE HCL IR 5 MG TAB (IMMEDIATE RELEASE) PO PRN ×2 (10:31→15:46)
[2023-04-24] MEDS ORDERED: INSULIN ASPART PER UNIT CHARGE SC SCH (12:30)
[2023-04-24 14:57] LABS: Appearance Urine Clear (Clear); Bilirubin Urine Negative (Negative); Blood Urine Negative (Negative); Color Urine Yellow; Glucose Urine UA 1+ (Negative); Ketones Urine 1+ (Negative); Leukocyte Esterase Urine Negative (Negative); Nitrite Urine Negative (Negative); Protein Urine Negative (Negative); Specific Gravity Urine 1.027 (1.000-1.030); Urobilinogen Urine Negative (Negative)
[2023-04-24] MEDS ORDERED: INSULIN, Rapid-Acting PUMP SCH (16:30)
--- NOTE | 2023-04-25 11:12 | Electrocardiogram Report ---
Test Reason : Blood Pressure : / mmHG Vent. Rate : 071 BPM Atrial Rate : 071 BPM P-R Int : 140 ms QRS Dur : 098 ms QT Int : 400 ms P-R-T Axes : 052 017 024 degrees QTc Int : 434 ms Normal sinus rhythm Normal ECG When compared with ECG of 09-APR-2023 14:12, Criteria for Septal infarct are no longer Present Confirmed by Almas Perry [id number]) on 04/25/2023 11:12:19 AM Referred By: Rainer Colvin Confirmed By:Almas Perry
--- NOTE | 2023-04-30 10:49 | Discharge Summary ---
Date of Service April 30, 2023 Discharge Data Consultations 04/23/23 20:52 Consult Hospitalist Stat Procedures Performed Operation Date: 04/23/23 12:30 Actual Procedures p Right Total Knee Arthroplasty(Right) - Rainer Colvin MD Hospital Course (1) Total knee replacement status: This is a 67 year old patient admitted on 04/23/23 and underwent total knee arthroplasty. He tolerated the procedure well and there were no complications. Transferred to the PACU post op and later to the orthopedic floor for further care. He was given ancef for antibiotic prophylaxis. Following administration of antibiotics post op dose he had a syncopal episode. Hospitalist service was consulted. He was transferred to telemetry. This was discussed with cardiology who felt this was from a vasovagal episode and no formal consult needed. He was also given TIA stockings, SCDs, and aspirin for DVT prophylaxis. Hemoglobin, hematocrit, and vital signs were monitored during his hospital stay and remained stable. Did not require any blood transfusions. There were no complications during his hospital stay. By post op day #1 the patient was tolerating a diabetic diet, pain was reasonably controlled with oral pain medicine, and he was participating in physical therapy. On post op day #1 the patient was discharged home and set up with home health care. He was given printed discharge instructions including prescriptions for extra strength tylenol, aspirin, cefadroxil, ketorolac, zofran, oxycodonce, and senokot. Continue physical therapy, weight bearing as tolerated. Continue TIA stockings. Follow up approximately 2 weeks post op or sooner if there are problems or concerns. Coding Level of Care Code None Diagnoses Total knee replacement status Z96.659
== END 2023-04-24 16:17 | disposition home health service (06) ==
LOC: ASU 10:35 → 3N 10:35 → 2W 22:39